=== PATIENT | female | born 1975 | race Caucasian/White ===

== ENCOUNTER 2018-03-16 06:40 | Day surgery (SDC) | payer OTHER ==
[2018-03-16] MEDS ORDERED: MEPERIDINE 25 MG INJ IV (09:00)
[2018-03-16] MEDS ORDERED: FENTAnyl 50 MCG/ML VIAL IV ×2 (09:00)
[2018-03-16] MEDS ORDERED: MIDAZOLAM 1 MG/ML 2 ML INJ IV (09:00)
[2018-03-16] MEDS ORDERED: DIPHENHYDRAMINE 50 MG INJ IV (09:00)
[2018-03-16] MEDS ORDERED: OXYCODONE/ACETAMINOPHEN (5/325) TAB PO ×2 (09:00)
[2018-03-16] MEDS ORDERED: ONDANSETRON 4 MG INJ IV (09:00)
[2018-03-16] MEDS ORDERED: METOCLOPRAMIDE 10 MG INJ IV (09:00)
[2018-03-16] MEDS ORDERED: LIDOCAINE 100 MG SYRINGE (09:03)
[2018-03-16] MEDS ORDERED: LIDOCAINE 2% (SDV) 5 ML INJ (09:03)
[2018-03-16] MEDS ORDERED: PROPOFOL 20 ML (09:03)
[2018-03-16] MEDS ORDERED: ONDANSETRON 4 MG INJ (09:04)
[2018-03-16] MEDS ORDERED: METOCLOPRAMIDE 10 MG INJ (09:04)
[2018-03-16] MEDS ORDERED: MEPERIDINE /PF (100 MG/2 ML) AMPULE (09:04)
[2018-03-16] MEDS: FENTAnyl 50 MCG/ML VIAL IV (10:45)
== END 2018-03-16 12:07 | disposition home or self-care (01) ==
LOC: SDS 06:40
DX: N92.0 Excessive and frequent menstruation with regular cycle (principal)
CPT/HCPCS: 58563; 84703